=== PATIENT | male | born 1945 | race Caucasian/White ===

== ENCOUNTER 2016-06-28 16:41 | Outpatient (CLI) | payer MEDICARE, OTHER ==
[~2016-06-28 16:41] MED LIST: BARIUM SULFATE 148 GM SUSP.RECON PO ONE; BARIUM SULFATE 240 ML ORAL.SUSP PO ONE
[2016-06-28] MEDS ORDERED: BARIUM SULFATE 148 GM SUSP.RECON PO ONE (17:39)
[2016-07-03] MEDS ORDERED: BARIUM SULFATE 240 ML ORAL.SUSP PO ONE (17:38)
== END 2016-06-28 23:59 | disposition home or self-care (01) ==
LOC: RAD 16:41
PROVIDERS: ATTEND Internal Medicine
DX: R13.10 Dysphagia, unspecified (principal)
CPT/HCPCS: 74230; 92611